=== PATIENT | female | born 1965 | race Caucasian/White ===

== ENCOUNTER 2018-11-26 08:39 | Day surgery (SDC) | payer OTHER ==
[~2018-11-26 08:39] MED LIST: Buffered Lidocaine 1% SYRIN* 1 ML/SYRINGE INTRADERM ONE; Lactated Ringers 1000 ML Bag* 1,000 ML IV SCH
[2018-11-26] MEDS ORDERED: Naloxone* 0.4 MG/ML 1 ML VIAL IV PRN (10:35)
[2018-11-26] MEDS ORDERED: Midazolam* 1 MG/ML 5 ML VIAL (5 MG) ONE (10:40)
[2018-11-26] MEDS ORDERED: fentaNYL* 50 MCG/ML 2 ML VIAL (100 MCG VIAL) ONE (10:40)
[2018-11-26] MEDS ORDERED: Bupivacaine 0.25% SDV* 30 ML ONE (11:26)
[2018-11-26 11:59] VITALS: BP 102/66
--- NOTE | 2018-11-26 13:04 | OP ---
DATE OF OPERATION: 11/26/18 [facility] DATE OF : 69 SURGEON: Angelo Salazar MD PATTERN MOLDER: CELI Mcmullen ANESTHESIOLOGIST: Dr. Arreola ANESTHESIA: Local MAC. PRE-OP DIAGNOSES: 1. Right trigger thumb. 2. Right thumb ulnar sesamoiditis. POST-OP DIAGNOSES: 1. Right trigger thumb. 2. Right thumb ulnar sesamoiditis. OPERATIVE PROCEDURE: 1. Right trigger thumb release. 2. Excision of right thumb MCP joint ulnar sesamoid bone. INDICATIONS: Rosalina has pain due to trigger thumb, but also she has crepitus and lot of pain over the ulnar sesamoid bone. We had talked about risks and benefits. She wanted to proceed. ESTIMATED BLOOD LOSS: 2 mL. COMPLICATIONS: None. FINDINGS: See above and below. DESCRIPTION OF PROCEDURE: Rosalina was seen in the preoperative holding area. The correct side, site, and procedure were identified. We came back to the operating room, where the arm was prepped and draped in usual fashion, and time- out was performed. The arm was exsanguinated with the Esmarch and then tourniquet inflated to 250 mmHg. I had already numbed up the area with 0.25% plain Marcaine. I then raised a low V shaped flap ulnarly based over the thumb MCP joint. Dissection was carried and a very thickened A1 marok was released. I had retracted both digital nerves out of the way with Ragnell retractors. Once I had completed the release distally and proximally, I turned my attention to the ulnar sesamoid bone. I used a [place] blade to release the soft tissue subperiosteally above the ulnar sesamoid bone. It came out in one piece. It was extremely arthritic and degenerative. Handed that off as specimen. The volar plate was holding nicely and there was no MCP joint hyperextension laxity, so we irrigated out the wound. Skin was closed with 4-0 nylon. Soft dressing was applied and she was taken to the recovery room in stable condition. [id number]/[facility] #: [id number] [facility]ITAL[facility]
== END 2018-11-26 12:19 | disposition home or self-care (01) ==
LOC: OREAST 08:39
PROVIDERS: ATTEND Orthopaedic Surgery Hand Surgery
DX: M25.841 Other specified joint disorders, right hand (principal); M65.311 Trigger thumb, right thumb; I10 Essential (primary) hypertension; Q21.1 Atrial septal defect; J44.9 Chronic obstructive pulmonary disease, unspecified; F17.210 Nicotine dependence, cigarettes, uncomplicated; E03.9 Hypothyroidism, unspecified
CPT/HCPCS: J2250; J3010; J3490

== ENCOUNTER 2019-07-08 07:52 | Day surgery (SDC) | payer MEDICAID, OTHER ==
[~2019-07-08 07:52] MED LIST changes: +Famotidine IV* 10 MG/ML 2 ML (20 mg) IV ONE; +Famotidine IV* 10 MG/ML 2 ML (20 mg) ONE
[2019-07-08] MEDS ORDERED: Midazolam* 1 MG/ML 5 ML VIAL (5 MG) ONE (09:03)
[2019-07-08] MEDS ORDERED: Bupivacaine 0.25% SDV* 30 ML ONE (09:42)
[2019-07-08] MEDS ORDERED: fentaNYL* 50 MCG/ML 2 ML VIAL (100 MCG VIAL) ONE (09:44)
[2019-07-08] MEDS ORDERED: Lidocaine 2% PF * 5 ML VIAL ONE (09:46)
[2019-07-08] MEDS ORDERED: Ketorolac INJ* 30 MG/ML 1 ML VIAL ONE (09:46)
[2019-07-08] MEDS ORDERED: Propofol* 10 MG/ML 20 ML BTL ONE (09:46)
[2019-07-08] MEDS ORDERED: Ondansetron INJ* 2 MG/ML VIAL ONE (09:46)
[2019-07-08] MEDS ORDERED: DiMENhydriNATE IV* 50 MG/ML VIAL IV PUSH PRN (09:58)
[2019-07-08] MEDS ORDERED: Acetaminophen TAB* 325 MG PO PRN (09:58)
[2019-07-08] MEDS ORDERED: HYDROmorphone INJ1* 1 MG/ML SYRINGE IV PRN (09:58)
[2019-07-08] MEDS ORDERED: Naloxone* 0.4 MG/ML 1 ML VIAL IV PRN (09:58)
[2019-07-08 10:35] VITALS: BP 113/75
--- NOTE | 2019-07-08 19:53 | OP ---
DATE OF OPERATION: 07/08/19 [facility] DATE OF : 69 SURGEON: Angelo Salazar MD STEREO EQUIPMENT REPAIRER: CELI Mcmullen ANESTHESIOLOGIST: Dr. Leon. ANESTHESIA: Local MAC. 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 OPERATIVE PROCEDURE: Excision of right thumb sesamoid bone. ESTIMATED BLOOD LOSS: 2 mL. COMPLICATIONS: None. FINDINGS: See above and below. DESCRIPTION OF PROCEDURE: Ms. Porras was seen in the preoperative holding area. The correct site, side, and procedure were identified. We came back to the operating room. I infiltrated the operative site with 0.25% plain Marcaine. The arm was then prepped and draped in the usual fashion and a time- out was performed. The arm was exsanguinated with the Esmarch and the tourniquet inflated. I made a V- shaped incision over the MCP joint flexion crease and a radially based flap was sewn back. The digital nerve was dissected and protected throughout the surgery as was the digital artery. I then used the [place] blade to release the soft tissue all about the radial sesamoid bone shelling out the flexor pollicis brevis tendon. The margins of the volar plate were released around the base of the sesamoid bone. It came out in one piece. It was very arthritic. I did go ahead and release the A1 marko of the flexor tendon sheath. The wound was irrigated out. I again inspected the digital neurovascular bundle, everything looked good. The wound was closed with 4-0 nylon suture. A soft dressing was applied and she was taken to the recovery room in stable condition. [id number]/[facility] #: [id number] [facility]
== END 2019-07-08 10:59 | disposition home or self-care (01) ==
LOC: OREAST 07:52
PROVIDERS: ATTEND Orthopaedic Surgery Hand Surgery
DX: M25.841 Other specified joint disorders, right hand (principal); M18.11 Unilateral primary osteoarthritis of first carpometacarpal joint, right hand; M65.841 Other synovitis and tenosynovitis, right hand; F17.210 Nicotine dependence, cigarettes, uncomplicated; I10 Essential (primary) hypertension; J44.9 Chronic obstructive pulmonary disease, unspecified; E03.9 Hypothyroidism, unspecified
CPT/HCPCS: 88304; 88311; J1885; J2250; J2405; J2704; J3010; J3490